=== PATIENT | female | born 1955 | race Caucasian/White ===

== ENCOUNTER 2025-01-25 07:38 | Emergency (ER) | payer OTHER ==
[2025-01-25] VITALS (7 sets, daily range): BP systolic 161–193; BP diastolic 75–94
[~2025-01-25] VITALS: Ht 170.2 cm; Wt 87.0 kg
== END 2025-01-25 09:23 | disposition home or self-care (01) | DRG 563 ==
LOC: ED 07:38
PROC: 2W3QX1Z Immobilization of Right Lower Leg using Splint (ICD-10-PCS; principal; 2025-01-25)
DX: S82.54XA Nondisplaced fracture of medial malleolus of right tibia, initial encounter for closed fracture (principal); W10.9XXA Fall (on) (from) unspecified stairs and steps, initial encounter; Y92.009 Unspecified place in unspecified non-institutional (private) residence as the place of occurrence of the external cause